=== PATIENT | male | born 1975 | race Asian ===

== ENCOUNTER 2024-12-02 17:52 | Emergency (ER) | payer OTHER ==
[2024-12-02 18:17] VITALS: BP 118/82; PULSE 81; RESP 18; TEMP 98.1; BMI 25.4
[2024-12-02] MEDS ORDERED: IBUPROFEN 600 MG TABLET (FP) PO ONE (18:47)
[2024-12-02] MEDS: IBUPROFEN 600 MG TABLET (FP) PO ONE ×2 (18:48→19:52)
== END 2024-12-02 20:01 | disposition home or self-care (01) ==
LOC: FER 17:52
DX: S92.352A Displaced fracture of fifth metatarsal bone, left foot, initial encounter for closed fracture (principal); X50.1XXA Overexertion from prolonged static or awkward postures, initial encounter
CPT/HCPCS: 73610-TC-LT-FY; 73630-TC-LT; 99283-25